=== PATIENT | male | born 1980 | race Caucasian/White ===

== ENCOUNTER 2021-04-02 06:35 | Observation (INO) | payer OTHER ==
[~2021-04-02] VITALS: Ht 185.4 cm; Wt 90.7 kg
[2021-04-02 07:21] VITALS: BP 111/74
[2021-04-02] MEDS ORDERED: LIPITOR10 MG PO (07:25)
[2021-04-02] MEDS ORDERED: TOPROL XL25 MG PO (07:26)
[2021-04-02] MEDS ORDERED: FLECAINIDE ACET50 M2 PO (07:26)
[2021-04-02 07:41] LABS: ABSOLUTE NEUTROPHILS 3.3 thou/uL (1.4-8.2); BASOPHILS 0.9 % (0.0-2.0); HEMATOCRIT 42.9 % (42.0-52.0); HEMOGLOBIN 14.3 gm/dL (14.0-18.0); LYMPHOCYTES 31.6 % (24.0-44.0); MCH 31.2 pg (26.0-34.0); MCHC 33.4 g/dL (28.0-37.0); MCV 93.2 fL (80.0-100.0); MONOCYTES 8.6 % (1.0-8.0); PLATELET COUNT 240 thou/uL (150-400); POLYS 57.9 % (36.0-66.0); RDW 13.2 % (10.5-14.5); WBC 5.7 thou/uL (4.0-11.0)
[2021-04-02 07:42] LABS: APTT 27.9 Seconds (24.5-32.8); INR 0.91
[2021-04-02 07:46] LABS: CALCIUM 9.1 mg/dL (8.5-10.1); CREATININE 0.9 mg/dL (0.7-1.3); POTASSIUM 4.3 mmol/L (3.5-5.1)
[2021-04-02 07:54] LABS: ALBUMIN 2.6 g/dL (3.4-5.0); TOTAL BILIRUBIN 0.2 mg/dL (0.2-1.0); TOTAL PROTEIN 6.9 g/dL (6.4-8.2)
[2021-04-02 12:43] VITALS: BP 118/83
--- NOTE | 2021-04-02 14:21 | EKG ---
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
[2021-04-02] MEDS ORDERED: XARELTO20 MG PO (16:10)
[2021-04-02 16:30] VITALS: BP 128/76
[2021-04-02 19:45] VITALS: BP 116/73
[2021-04-03 04:30] VITALS: BP 105/68
[2021-04-03 07:18] VITALS: BP 101/65
[2021-04-03] MEDS ORDERED: XARELTO20 MG PO (08:01)
[2021-04-03 09:54] VITALS: BP 101/65
--- NOTE | 2021-04-03 10:21 | NUR ---
during report at shift change pt c/o dizzyness and r groin site pain, pt also feeling flushed, hemotoma noted at site pressure held and hemotoma reduced, notified, pt placed back on bedrest with frequent groin checks and vs all noted on post cath sheet placed in chart, pain meds given as needed and iv fluids started, vss sbp remains low 100s hr nsr 80's, spouse at bedside offering support, pt up to br after bedrest and right groin remains cdi with bandaid and scattered bruising, report given to to next shift to con't ppoc.
--- NOTE | 2021-04-03 11:10 | NUR ---
ASSESSMENT CHARTED - MEDS PER JUL - BEN DIET AND FLUIDS. UP AD JENN IN ROOM. GROIN SITE WITH BRUSING PRESENT AND PT STATES IT IS TENDER. AREA SOFT TO TOUCH. MEDS PER MAR - NO CO'S OF NAUSEA. PT HOME THIS AM - INSTRUCTION RE HOME MEDS/ CARE AND FOLLOW UP GIVEN TO PATIENT AND - STATED UNDERSTANDING OF INSTRUCTION GIVEN. PT LEFT UNIT AMBULATORY PER HIS REQUEST. HOME VIA PVT VEHICLE ACCOMAPNIED BY - NO CO'S AT TIME OF D/C.
--- NOTE | 2021-04-07 11:32 | P ---
[facility] [place] [address] PROCEDURE REPORT Name: MELITON KUMAR Room #: 201-P [facility] Michell Farmer#: [id number] Admission: 04/02/21 Attend Phys: Miguel Pulido MD Discharge: 04/03/21 Date of : 80 Report #: [id number] THIS REPORT FOR: cc: Louie White MD, Prashanth S. MD Couchonnal, Luis F. MD ~ DATE OF SERVICE: 04/02/2021 PREOPERATIVE DIAGNOSIS: Atrial fibrillation. POSTOPERATIVE DIAGNOSIS: Atrial fibrillation. HISTORY: The patient is a 40-year-old male with recurrent AFib despite antiarrhythmic drug therapy, here for ablation. PROCEDURES PERFORMED: 1. Atrial fibrillation ablation, CPT code 15753. 2. 3D mapping, CPT code 59519. 3. Program stimulation and pacing after IV drug infusion, CPT code 15480. 4. Intracardiac echo, CPT code 74253. ANESTHESIA: The patient underwent general anesthesia with no anesthesia related complications. DESCRIPTION OF PROCEDURE: The patient underwent an informed consent. We discussed the details of the procedure including the risks, which include but not limited to bleeding, infection, vascular damage, stroke, cardiac perforation. He understood these risks and is willing to proceed. The patient was brought to the EP laboratory in a fasting and sedated state, prepped and draped in a standard fashion. I obtained access to the right femoral vein x 3, placing an 8, 9 and 7-[place] short sheath using the modified Seldinger technique. Under fluoroscopy, I placed a decapolar catheter into the coronary sinus and ICE catheter in the right atrium. At baseline, the patient was in sinus rhythm. The patient was systemically heparinized and a transseptal was performed using SL1 sheath and a Kirkman needle. This was straightforward and exchanged for the cryosheath and placed this into the left atrium. The Lasso catheter was then placed in the left atrium and created 3D geometry of the left atrium and then we started isolating the veins. Left superior pulmonary vein underwent a 4-minute freeze isolating at 65 seconds. The left inferior pulmonary vein underwent a 3-minute freeze isolating at 16 seconds. The right superior pulmonary vein underwent a 3-minute freeze isolating at 26 seconds. The right inferior pulmonary vein underwent two 3-minute freezes and isolated at the second freeze at 28 seconds. Next a repeat voltage map was created and all veins now appeared to be isolated. An EP study was then performed. AV block was noted at 440 milliseconds. [facility] [address] [place] [address] PROCEDURE REPORT Name: MELITON KUMAR Room #: 201-P [facility] Michell M.R.#: [id number] Admission: 04/02/21 Attend Phys: Miguel Pulido MD Discharge: 04/03/21 Date of : 80 Report #: [id number] Atrial ERP was noted at 370 milliseconds at [address] cycle length. Next, isoproterenol infusion was started at 2 mcg per minute. AV block was noted at 280 milliseconds. Atrial ERP was noted at 250 milliseconds at a [address] cycle length. I could not induce any atrial fibrillation, atrial flutter or any other forms of SVT. As such, the procedure was concluded. The patient received systemic protamine and once ACT was within acceptable range, catheters and sheaths were pulled. Hemostasis was obtained. The patient awoke neurologically and hemodynamically intact. No complications and no significant bleeding. CONCLUSION: 1. Successful AFib ablation with isolation of the pulmonary veins. 2. Normal EP study with no inducible arrhythmias on or off isoproterenol. <ELECTRONICALLY SIGNED> By: Miguel Pulido MD 04/07/21 1132 1032 2227 Miguel Pulido MD /nt
== END 2021-04-03 10:36 | disposition home or self-care (01) ==
LOC: CATH 06:35 → 2N 06:35 → CATH 07:48 → 2N 12:51 → CATH 12:51 → 2N 04-03 10:36
PROVIDERS: ADMIT Internal Medicine Cardiovascular Disease; ATTEND Internal Medicine Cardiovascular Disease
DX: I48.0 Paroxysmal atrial fibrillation (principal); Z20.822 Contact with and (suspected) exposure to COVID-19; E66.9 Obesity, unspecified; I25.10 Atherosclerotic heart disease of native coronary artery without angina pectoris; I10 Essential (primary) hypertension; E78.5 Hyperlipidemia, unspecified; Z68.32 Body mass index [BMI] 32.0-32.9, adult; Z79.899 Other long term (current) drug therapy
CPT/HCPCS: 62110; 62900; 65020; 70005